=== PATIENT | male | born 1960 | race Caucasian/White ===

== ENCOUNTER 2017-06-15 13:10 | Emergency (ER) | payer OTHER ==
[2017-06-15 13:15] VITALS: BP 147/96; PULSE 90; TEMP 98.3; BMI 34.0
--- NOTE | 2017-06-15 13:18 | PDOC ---
History of Present Illness - General Chief Complaint: Respiratory Stated Complaint: RUNNY/STUFFY NOSE, COUGH Time Seen by Provider: 06/15/17 13:18 - History of Present Illness Initial Comments: 06/15/17 14:38 Pt presents to the ED complaining of a 5 day history of generalized malaise, accompanied by nasal congestion and runny nose. Denies other complaints except for persistent fatigue. Pt's was recently diagnosed with the flu. Denies nausea, vomiting, fever, chest pain or shortness of breath. Past History - Past Medical History Allergies/Adverse Reactions: Allergies Allergy/AdvReac Type Severity Reaction Status Date / Time No Known Allergies Allergy Verified 06/15/17 13:10 Home Medications: Ambulatory Orders Atorvastatin Ca [Lipitor] 10 mg PO HS 06/15/17 Lisinopril [Zestril] 10 mg PO DAILY 06/15/17 COPD: No HTN: Yes - Surgical History Abdominal Surgery: Yes (HERNIA SX) - Suicide/Smoking/Psychosocial Hx Smoking History: Never smoked Have you smoked in the past 12 months: No Information on smoking cessation initiated: No Hx Alcohol Use: No Drug/Substance Use Hx: No Substance Use Type: None Review of Systems - Review of Systems Able to Perform ROS?: Yes Is the patient limited Welsh proficient: No Constitutional: Yes: Malaise. No: Symptoms Reported, See HPI, Chills, Diaphoresis, Fever, Loss of Appetite, Night Sweats, Weakness, Weight Stable, Unintentional Wgt. Loss, Unexplained wgt Loss, Other HEENTM: Yes: Nose Congestion. No: Symptoms Reported, See HPI, Eye Pain, Blurred Vision, Tearing, Recent change in vision, Double Vision, Cataracts, Ear Pain, Ocular Prothesis, Ear Discharge, Nose Pain, Tinnitus, Nose Bleeding, Hearing Loss, Throat Pain, Throat Swelling, Mouth Pain, Dental Problems, Difficulty Swallowing, Mouth Swelling, Other Respiratory: Yes: Cough. No: Symptoms reported, See HPI, Orthopnea, Shortness of Breath, SOB with Exertion, SOB at Rest, Stridor, Wheezing, Productive cough, Hemoptysis, Other Cardiac (ROS): No: Symptoms Reported, See HPI, Chest Pain, Edema, Irregular Heart Rate, Lightheadedness, Palpitations, Syncope, Chest Tightness, Other ABD/GI: No: Symptoms Reported, See HPI, Abdominal Distended, Abd. Pain w/ defecation, Blood Streaked Bowels, Constipated, Diarrhea, Difficulty Swallowing , Nausea, Poor Appetite, Poor Fluid Intake, Rectal Bleeding, Vomiting, Indigestion, Abdominal cramping, Tarry Stools, Other : No: Symptoms Reported, See HPI, Burning, Dysuria, Discharge, Frequency, Flank Pain, Hematuria, Incontinence, Pain, Urgency, Testicular Mass, Testicular Swelling, Lesions, Testicular Pain, Other Musculoskeletal: No: Symptoms Reported, See HPI, Back Pain, Gout, Joint Pain, Joint Swelling, Muscle Pain, Muscle Weakness, Neck Pain, Joint Stiffness, Other Integumentary: No: Symptoms Reported, See HPI, Bruising, Change in Color, Change in Hair/Nails, Dryness, Erythema, Flushing, Lesions, Lumps, Pallor, Pruritus, Rash, Sweating, Other Neurological: No: Symptoms reported, See HPI, Headache, Numbness, Paresthesia, Pre-Existing Deficit, Seizure, Tingling, Tremors, Weakness, Unsteady Gait, Ataxia, Dizziness, Other *Physical Exam - Vital Signs Last Vital Signs Temp Pulse Resp BP Pulse Ox 98.3 F 90 18 147/96 97 06/15/17 13:10 06/15/17 13:10 06/15/17 13:10 06/15/17 13:10 06/15/17 13:10 - Physical Exam General Appearance: Yes: Nourished, Appropriately Dressed. No: Apparent Distress, Disheveled, Mild Distress, Moderate Distress, Severe Distress, Alcohol on Breath, Intoxicated, Cachetic, Obese, Thin, Other HEENT: positive: Normal ENT Inspection Neck: positive: Trachea midline, Supple Respiratory/Chest: positive: Lungs Clear, Normal Breath Sounds. negative: Chest Tender, Respiratory Distress, Accessory Muscle Use, Labored Respiration, Rapid RR, Decreased Breath Sounds, Paradoxal Breathing, Crackles, Rales, Rhonchi , Stridor, Wheezing, Hyperresonant, Dullness, Plerual Rub, Other Cardiovascular: positive: Regular Rhythm, Regular Rate, S1, S2. negative: Edema , JVD, Murmur, Bradycardia, Tachycardia, Diastolic Murmur, Systolic Murmur, Gallop/S3, Gallop/S4, Irregularly Irregular, Irregular, Other Gastrointestinal/Abdominal: positive: Flat, Soft. negative: Normal Bowel Sounds , Tender, Organomegaly, Pulsatile Mass, Increased Bowel Sounds, Decreased BS, Protuberent, Distended, Guarding, Rebound, Tenderness, Hernia, Mass, Hepatomegaly, Spleenomegaly, Other ED Treatment Course - LABORATORY CBC & Chemistry Diagram: 06/15/17 13:30 06/15/17 13:30 Medical Decision Making - Medical Decision Making 06/15/17 14:43 Pt presents to the ED complaining of generalized malaise and fatigue, with minimal other symptoms. The patient is concerned that he may have flu. Symptoms are atypical of flu--will check labs to rule out other causes of fatigue, such as severe anemia or electrolyte derrangement. Will test for flu. *DC/Admit/Observation/Transfer Diagnosis at time of Disposition: Fatigue Qualifiers: Fatigue type: unspecified Qualified Code(s): R53.83 - Other fatigue - Discharge Dispostion Disposition: HOME Condition at time of disposition: Good Admit: No - Referrals - Patient Instructions Printed Discharge Instructions: DI for Fatigue Additional Instructions: return to the ED for nausea and vomiting, fever, bloody vomit or stool, chest pain or shortness of breath. Follow up with your primary care doctor within one week--you may need additional testing. - Post Discharge Activity Forms/Work/School Notes: Back to Work
[2017-06-15 14:03] LABS: BASO % 0.4 % (0-2.0); EOS % 1.7 % (0-4.5); HEMOGLOBIN 15.6 GM/dl (11.7-16.9); LYMPH % 28.9 % (8-40); MCH 29.7 pg (25.7-33.7); MCHC 33.9 g/dl (32.0-35.9); MEAN CELL VOLUME 87.5 fl (80-96); MEAN PLT VOLUME 10.1 fl (7.5-11.1); MONO % 9.3 % (3.8-10.2); NEUT % 59.7 % (42.8-82.8); PLATELET COUNT 201 K/MM3 (134-434); RBC 5.25 M/mm3 (4.00-5.60); WHITE BLOOD COUNT 7.2 K/mm3 (4.0-10.8)
[2017-06-15 14:11] LABS: ALBUMIN 4.2 g/dl (3.5-5.0); ALK PHOS 68 U/L (32-92); ANION GAP 8 (8-16); BILIRUBIN,TOTAL 1.1 mg/dl (0.2-1.0); BLOOD UREA NITROGEN 13 mg/dl (7-18); CALCIUM 9.2 mg/dl (8.4-10.2); CHLORIDE 103 mmol/L (98-107); CO2 23 mmol/L (22-28); CREATININE 0.9 mg/dl (0.6-1.3); GLUCOSE,RANDOM 110 mg/dl (74-106); POTASSIUM 4.3 mmol/L (3.5-5.1); SGOT/AST 27 U/L (10-42); SGPT/ALT 26 U/L (10-40); SODIUM 134 mmol/L (136-145); TOT PROT 7.2 g/dl (6.4-8.3)
== END 2017-06-15 16:20 | disposition home or self-care (01) ==
LOC: FER 13:10
DX: R53.83 Other fatigue (principal); I10 Essential (primary) hypertension
CPT/HCPCS: 36415; 80053; 85025; 87804; 99283-25